=== PATIENT | female | born 1940 | race Two or more races ===

== ENCOUNTER 2018-02-28 09:37 | Outpatient (CLI) | payer OTHER | END 2018-02-28 09:41 | disposition home or self-care (01) | LOC: SONOGRAMA 09:37 | DX: E04.2 Nontoxic multinodular goiter (principal); N18.9 Chronic kidney disease, unspecified; E78.2 Mixed hyperlipidemia; E03.8 Other specified hypothyroidism; E66.01 Morbid (severe) obesity due to excess calories; R40.1 Stupor ==